=== PATIENT | female | born 1960 | race Caucasian/White ===

== ENCOUNTER 2016-08-20 07:24 | Inpatient (IN) | payer OTHER ==
--- NOTE | ~2016-08-20 | CT71 ---
[facility] A Service [facility] RADIOLOGY TEXT RESULTS PATIENT: TACHO MANUEL LOCATION: [facility] : 56 UNIT #: [id number] AGE: [address]: Devon Luevano MD SEX: F ORDER DR: [id number] [address] [address] [id number] MR#: [id number] #: [id number] NAME: TACHO MANUEL : 1960 SEX: F STUDY DATE/TIME: 08/20/2016 8:54 UNIT: [facility] ROOM: STUDY DESCRIPTION: CT Head Wo Contrast Attending Physician: Devon Luevano M.D. Ordering Physician: Devon Luevano M.D. Primary Care Physician: Nguyễn Morales M.D. MEDICAL IMAGING REPORT This report is preliminary unless electronic signature is present EXAM CT head without contrast. DATE 08/20/2016 HISTORY 55-year-old female who has been unable to move her lower extremities since 0300 today. History of breast cancer diagnosed in 2000. COMPARISON CT head without contrast 05/24/2012. TECHNIQUE This CT exam was performed with one or more of the following radiation dose reduction techniques: automatic exposure control, adjustment of mA and/or kV according to patient size, and iterative reconstruction. FINDINGS No acute intracranial hemorrhage, mass lesion, mass effect, or midline shift is seen. Thorne matter-white matter junction distinction is preserved, without CT evidence of acute or evolving infarct. There is mild left maxillary sinus and bilateral ethmoid sinus mucosal thickening. Mastoid air cells are clear. No acute displaced calvarial fracture is identified. IMPRESSION 1. No acute intracranial findings. 2. Paranasal sinus disease. Dictated by... [facility] A Service [facility] RADIOLOGY TEXT RESULTS PATIENT: TACHO MANUEL LOCATION: [facility] : 56 UNIT #: [id number] AGE: [address]: Devon Luevano MD SEX: F ORDER DR: Alondra Garcia M.D. THIS IS AN ELECTRONICALLY VERIFIED REPORT Alondra Garcia M.D. at 08/20/2016 4:35 PM [facility]/dora TD: 08/20/2016 12:12 JOB #: [id number] MEDICAL IMAGING REPORT Page 1 of 1 COPY
--- NOTE | ~2016-08-20 | DS ---
Unit #: [id number] #: [id number] Patient: TACHO MANUEL [id number] [address] [address] [id number] MR#: [id number] NAME: TACHO MANUEL ROOM: 331 Age: 55 Sex: F Admission Date: 08/20/2016 : 1960 Discharge Date: 08/22/2016 Attending Physician: Ora Jenkins M.D. Primary Care Physician: Nguyễn Morales M.D. DISCHARGE SUMMARY DIAGNOSES ON ADMISSION 1. Bilateral lower extremity weakness. 2. Severe hypokalemia. DISCHARGE DIAGNOSES 1. Hypokalemia, resolved. 2. Bilateral lower extremity weakness, resolved. 3. Chronic obstructive pulmonary disease. 4. Depression. 5. Anxiety disorder. 6. Gastroesophageal reflux disease. 7. History of breast cancer. DIAGNOSTIC DATA LABORATORY: Creatinine 0.8, sodium 142, potassium 3.3 today. It was 1.5 on admission. White blood cell count 6.2, hemoglobin 11.5, platelet count 155. Magnesium level 2.2. Urinalysis did not reveal any white blood cells. Lactic acid level was 0.9. Urine tox screen was negative. IMAGING: CT scan of the head did not reveal an acute intracranial abnormality. HOSPITAL COURSE The patient is a 55-year-old female who presented to [facility] with severe hypokalemia and bilateral lower extremity weakness. Details are as per admission history and physical. The patient was admitted to the hospital and potassium was given. Her potassium is much better and is 3.3 today. The patient is feeling much better and is ambulatory and wants to go home. The patient states that she uses laxatives sometimes for constipation. She is advised to follow up with her primary care physician. Today the patient is comfortable, in no distress and wants to go home. DISCHARGE CONDITION Stable. ACTIVITY As tolerated. DISCHARGE MEDICATIONS 1. ProAir inhaler q.2 h. p.r.n. 2. Lyrica 200 mg p.o. b.i.d. 3. Paxil 20 mg p.o. daily. Unit #: [id number] #: [id number] Patient: TACHO MANUEL 4. Simethicone 125 mg p.o. daily. 5. Bentyl 20 mg p.o. daily p.r.n. 6. Seroquel 200 mg p.o. at nighttime. 7. Ambien 5 mg at nighttime p.r.n. 8. Lycine 500 mg p.o. q.8 h. 9. Colace 600 mg q.48 h. 10. Imitrex as needed. 11. Linzess 290 mcg daily. 12. Zantac 150 mg daily p.r.n. 13. Excedrin Migraine p.r.n. 14. Percocet 1 tablet p.o. q.i.d. p.r.n., which is the patient's home medicine. 15. Prevacid 30 mg p.o. daily. 16. Calcium with vitamin D 500 mg p.o. every other day. 17. Synthroid 25 mcg p.o. daily. 18. Afrin nasal spray p.r.n. 19. Vitamin B12 1000 mcg p.o. daily. 20. Potassium 10 mEq p.o. daily. FOLLOWUP The patient is advised to follow up with primary care physician in four to five days and have a CBC and BMP done for followup on hypokalemia. If the patient's potassium level remains low, she may need renal workup on an outpatient basis through her primary care physician. The plan was discussed in detail with the patient, who showed complete understanding. Please make note, I offered the patient inpatient renal consultation but she wanted to go home and have it done on an outpatient basis if needed. The patient was advised to call primary care physician or go to the emergency room if her condition changes. Dictated by... Lissy Lutz TD: 08/22/2016 10:31 JOB #: [id number] DISCHARGE SUMMARY Page 1 of 1 X Ora Jenkins MD X DISCHARGE SUMMARY
--- NOTE | ~2016-08-20 | HP ---
Unit #: [id number] #: [id number] Patient: TACHO MANUEL [id number] [address] [address] [id number] E MR#: [id number] NAME: TACHO MANUEL ROOM: Age: 55 Sex: F Admission Date: 08/20/2016 : 1960 Attending Physician: Devon Luevano M.D. Primary Care Physician: Nguyễn Morales M.D. HISTORY AND PHYSICAL CHIEF COMPLAINT Lower extremity weakness. HISTORY OF PRESENT ILLNESS The patient is a 55-year-old female with a history of depression and breast cancer, status post mastectomy, back pain, status post steroid injection 2 weeks ago. The patient got a migraine. She presented to the emergency room unable to move the lower extremity. The patient woke up at 3:30 this morning to go to the bathroom and was unable to move the leg, hands and neck. The patient was found to have potassium of 1.5 in the emergency room and MRI was attempted, but the patient could not lie flat and MRI was canceled. The patient was started on protocol for potassium. The patient started feeling better, able to move the hands and the neck and the foot, but still not the legs. The patient is admitted for the above reasons. PAST MEDICAL HISTORY 1. History of chronic obstructive pulmonary disease. 2. Depression/anxiety disorder. 3. Gastroesophageal reflux disease. 4. Breast cancer. 5. Status post T12 compression fracture, status post spinal fusion with instrumentation T10 through L2 levels. PAST SURGICAL HISTORY 1. Right mastectomy. 2. Hysterectomy. 3. Gallbladder surgery. 4. Spine fracture times three. 5. Right knee surgery. SOCIAL HISTORY The patient smokes less than a pack per day. Denies any alcohol or any illicit drug abuse. FAMILY HISTORY Reviewed and none. ALLERGIES No known drug allergies. HOME MEDICATIONS 1. Claritin. Unit #: [id number] #: [id number] Patient: TACHO MANUEL 2. Bentyl. 3. Paxil. 4. Vitamins. 5. Afrin. 6. Lansoprazole. 7. Oxycodone. 8. Advil. 9. Lyrica. 10. Zolpidem. 11. ProAir. 12. Imitrex. 13. Linzess. 14. Seroquel. 15. Levothyroxine. 16. Calcium. 17. Excedrin. 18. Lysine. 19. Stool softener. 20. Black cohosh. PHYSICAL EXAMINATION GENERAL: The patient is a lying on a bed, not in acute distress. VITALS: Temperature 97.1, pulse 66, respiratory rate 12, blood pressure 109/62, saturating 95% on room air. HEENT: Head atraumatic, normocephalic. Pupils equal, round and reactive to light and accommodation. Extraocular movements are intact. NECK: Supple. LUNGS: Clear to auscultation at the bases. HEART: Regular rate and rhythm. ABDOMEN: Soft. Positive bowel sounds. EXTREMITIES: No cyanosis or clubbing. NEUROLOGIC: Alert, awake and oriented. Unable to move the lower legs. Able to move the upper extremities and neck. DIAGNOSTIC STUDIES IMAGING: CT of the head shows no acute intracranial findings. Paranasal sinus disease. LABORATORY: Sodium 139, potassium 1.4, chloride 120, bicarb 14, glucose 108, BUN 20, creatinine 0.9, calcium 8.6, troponin less than 0.05. INR 0.9. Glucose 117, white blood cell count 12, hemoglobin 13.1, hematocrit 39.1, platelets 170. ASSESSMENT 1. Hypokalemia. 2. Lower extremity weakness. 3. Anxiety. PLAN Admit the patient to inpatient. The patient will have potassium replacement per protocol. Check urinalysis and lactic acid. Metabolic acidosis with a bicarb of 12. To rule out infection check urinalysis. The patient will be monitored closely. Will have physical therapy if the patient continues to have inability to move the legs, then we will have an MRI of the spine and pain management consult. The patient is being followed through [facility]. Further recommendations will follow. Unit #: [id number] #: [id number] Patient: TACHO MANUEL Dictated by Lissy Wu TD: 08/20/2016 15:35 JOB #: [id number] HISTORY AND PHYSICAL Page 1 of 1 X JOSE AGUILAR MD HISTORY AND PHYSICAL
--- NOTE | ~2016-08-20 | EKG ---
PATIENT: TACHO MANUEL UNIT #: [id number] Ventricular Rate: 63 BPM Atrial Rate: 63 BPM P-R Interval: 172 ms QRS Duration: 94 ms Q-T Interval: 598 ms QTC Calculation(Bezet): 611 ms P [place]: 77 degrees Calculated R [place]: 66 degrees Calculated T [place]: 60 degrees Diagnosis Line: Normal sinus rhythm Diagnosis Line: Nonspecific ST abnormality Diagnosis Line: Prolonged QT Diagnosis Line: Abnormal ECG Diagnosis Line: When compared with ECG of 26-MAR-2014 11:19, Diagnosis Line: Non-specific change in ST segment in Anterior Diagnosis Line: leads Diagnosis Line: T wave amplitude has decreased in Lateral leads Diagnosis Line: QT has lengthened Diagnosis Line: Confirmed by DAY JOHNS MD ([id number]) on Diagnosis Line: 08/21/2016 1:37:40 PM INTERPRETING MD: JHONY
[~2016-08-20 07:24] MED LIST: AFRIN NASAL SPR15 ML; ALBUTEROL17 GM INH; AMBIEN PO; AMITRIPTYLINE H50 MG PO; APRESOLINE PO; AZITHROMYCIN250 MG PO; B-COMPLEX-VITA1 EACH; BENTYL20 MG PO; BUSPAR PO; CALCIUM 600 +1 EAC3; CALCIUM CIT-VI1 EACH PO; COMBIVENT INH14.7 GM INH; COMPAZINE5 M1 PO; COMPAZINE5 MG PO; COOL PO; CYMBALTA PO; DESYREL50 MG PO; DICYCLOMINE HCL20 MG PO; EXCEDRIN MIGRAI1 TA2 PO; FLEXERIL PO; FLEXERIL10 MG; FLEXERIL10 MG PO; IBUPROFEN800 MG PO; IMITREX PO; KETOPROFEN PO; LAMICTAL PO; LAMOTRIGINE200 MG PO; LIDODERM30 EA TOP; LORTAB 5/500 TA1 TA1 PO; LYRICA PO; LYRICA200 MG PO; MIRAPEX0.125 MG PO; MORPHINE SULFAT15 MG PO; MUSCLE RELAXER; NATURAL VEGETA PO; NEURONTIN300 MG PO; NORCO1 TAB 10/3 PO; NUCYNTA100 MG; ONE DAILY MULTI1 TA3; OXYCODON HCL-1 UDTA1 PO; OXYCODON HCL-1 UDTAB PO; OXYCODONE-APAP1 EACH PO; PAIN PILL; PARAFON FORTE500 MG PO; PERCOCET; PERCOCET 10/3251 TAB PO; PERCOCET 5-3251 TAB PO; PERCOCET 51 UDTAB 5/ PO; PERCOCET10 PO; PHENERGAN PO; PHENERGAN25 M1 PO; PHENERGAN25 MG; PHENERGAN25 MG PO; PRILOSEC PO; PROAIR HFA8.5 GM; PROTONIX PO; REGLAN PO; REGLAN10 MG; S LAXATIVE; SENNOSIDES-DOC1 EACH PO; SEROQUEL PO; STOOL SOFTENER1 EAC1; STOOL SOFTENER1 EAC1 PO; SUMATRIPTAN SU100 MG PO; TEMAZEPAM30 MG PO; THIAMINE HCL100 MG PO; TIZANIDINE HCL2 MG PO; TYLENOL #3 PO; TYLOX1 CAP 5/50 DOB; VOLTAREN75 MG PO; WELLBUTRIN PO; WELLBUTRIN XL PO; ZANAFLEX4 M1 PO; ZEGERID 40 MG C1 CAP; [UNRECOGNIZED DRUG - OTHER] PO; [UNRECOGNIZED DRUG - REMARK]
[2016-08-20 08:22] LABS: BASOPHIL# 0.1 X10e3 (0-0.3); BASOPHIL% 0.8 % (0-2.5); EOSINOPHIL# 0.4 X10e3 (0-0.7); HEMATOCRIT 39.1 % (35.0-45.0); HEMOGLOBIN 13.1 gm/dL (12.0-16.0); LYMPHOCYTE# 1.8 X10e3 (1.0-3.5); LYMPHOCYTE% 14.9 % (17.0-45.0); MEAN CELL VOLUME 97.7 FL (83-96); MEAN CORPUSCULAR HEMOGLOBIN 32.7 PG (28-34); MEAN CORPUSCULAR HGB CONC 33.5 g/dL (30-36); MEAN PLATELET VOLUME 11.4 FL (6.5-11.5); NEUTROPHIL# 8.8 X10e3 (1.5-7.1); NEUTROPHIL% 73.3 % (40-75); PLATELET COUNT 170 X10e3 (140-420); RED CELL DISTRIBUTION WIDTH 15.3 % (11.0-15.5)
[2016-08-20 08:25] LABS: DIFF IND NO
[2016-08-20 08:33] LABS: INR 0.9; PARTIAL THROMBOPLASTIN TIME 26.1 SECONDS (23.5-31.3); PROTHROMBIN TIME (PATIENT) 9.7 SECONDS (9.6-11.5)
[2016-08-20 08:48] LABS: ALBUMIN SERUM 3.7 g/dL (3.5-5.0); BILIRUBIN, DIRECT 0.1 mg/dL (0.0-0.2); BILIRUBIN,INDIRECT 0.4 mg/dL (0.0-0.9); BILIRUBIN,TOTAL 0.5 mg/dL (0.2-2.0); BUN/CREATININE RATIO 18.18; CALCIUM SERUM 8.8 mg/dL (8.4-10.2); CREATININE SERUM 1.1 mg/dL (0.6-1.4); GLOM FILT RATE Estimated 55.7 mL/min (>60); PROTEIN TOTAL SERUM 6.4 g/dL (6.0-8.3)
[2016-08-20 08:50] LABS: POTASSIUM 1.5 mmol/L (3.5-5.1)
[2016-08-20 08:55] LABS: POC - CKMB 5.4 ng/mL (0.0-7.9); POC - TROPONIN <0.05 ng/mL (<=0.05)
[2016-08-20] MEDS ORDERED: LANSOPRAZOLE30 M3 PO (10:01)
[2016-08-20] MEDS ORDERED: OXYCODONE-ACET1 EAC1 PO (10:01)
[2016-08-20] MEDS ORDERED: LYRICA PO (10:02)
[2016-08-20] MEDS ORDERED: IBUPROFEN PO (10:02)
[2016-08-20] MEDS ORDERED: ZOLPIDEM TARTRA10 M1 PO (10:03)
[2016-08-20] MEDS ORDERED: PROAIR RESPICL90 MCG INH (10:06)
[2016-08-20] MEDS ORDERED: IMITREX PO (10:06)
[2016-08-20] MEDS ORDERED: LINZESS290 MCG PO (10:07)
[2016-08-20] MEDS ORDERED: SEROQUEL PO (10:09)
[2016-08-20] MEDS ORDERED: LEVO-T25 MCG PO (10:10)
[2016-08-20] MEDS ORDERED: RANITIDINE HCL150 M1 PO (10:10)
[2016-08-20] MEDS ORDERED: BENTYL20 MG PO (10:11)
[2016-08-20] MEDS ORDERED: PAXIL PO (10:14)
[2016-08-20] MEDS ORDERED: B-121000 MC1 PO (10:14)
[2016-08-20] MEDS ORDERED: AFRIN15 M1 (10:15)
[2016-08-20] MEDS ORDERED: EXCEDRIN MIGRA1 EACH PO (10:16)
[2016-08-20] MEDS ORDERED: CALCIUM + D3 E1 EACH PO (10:16)
[2016-08-20] MEDS ORDERED: L-LYSINE500 M2 PO (10:17)
[2016-08-20] MEDS ORDERED: STOOL SOFTENER50 MG PO (10:17)
[2016-08-20] MEDS ORDERED: ALKA-SELTZER125 MG PO (10:18)
[2016-08-20] MEDS ORDERED: BLACK COHOSH40 M1 PO (10:18)
[2016-08-20] MEDS ORDERED: PATIENT'S PHARMACY (10:22)
[2016-08-20 10:54] LABS: BUN/CREATININE RATIO 22.22; CALCIUM SERUM 8.6 mg/dL (8.4-10.2); CREATININE SERUM 0.9 mg/dL (0.6-1.4)
[2016-08-20 10:56] LABS: POTASSIUM 1.4 mmol/L (3.5-5.1)
[2016-08-20 16:32] LABS: URINE SOURCE CLEAN CATCH
[2016-08-20 17:01] LABS: AMPHETAMINE NEG (NEG); BARBITURATES NEG (NEG); BENZODIAZEPINES NEG (NEG); COCAINE NEG (NEG); MARIJUANA NEG (NEG); OPIATES NEG (NEG); TRICYCLIC ANTIDEPRESSANTS NEG (NEG); U METHADONE NEG (NEG)
[2016-08-20 17:28] LABS: URINE APPEARANCE CLEAR; URINE BILIRUBIN NEG (NEG); URINE BLOOD 1+ (NEG); URINE COLOR YELLOW; URINE GLUCOSE NEG (NEG); URINE KETONE NEG (NEG); URINE LEUKOCYTE ESTERASE NEG (NEG); URINE NITRATE NEG (NEG); URINE PH 6.5 (5-8); URINE PROTEIN 1+ (NEG); URINE UROBILINOGEN 0.2 MG/DL (NEG)
[2016-08-20 17:31] LABS: CULTURE INDICATED? NO; U HYALINE CASTS AUWI 0-2 /[LPF]; URBCS1 AUWI 0-2 /[HPF] (0-2); URINE BACTERIA AUWI NEG (NEGATIVE); URINE SQUAMOUS EPITHELIAL CELL OCC /[HPF]; UWBCS1 AUWI 0-2 (0-5)
[2016-08-21 10:25] LABS: HEMATOCRIT 36.7 % (35.0-45.0); HEMOGLOBIN 12.1 gm/dL (12.0-16.0); MEAN CELL VOLUME 98.6 FL (83-96); MEAN CORPUSCULAR HEMOGLOBIN 32.5 PG (28-34); MEAN CORPUSCULAR HGB CONC 32.9 g/dL (30-36); MEAN PLATELET VOLUME 11.8 FL (6.5-11.5); RED BLOOD COUNT 3.72 X10e (3.90-5.30); RED CELL DISTRIBUTION WIDTH 15.2 % (11.0-15.5); WHITE BLOOD COUNT 6.6 X10e3 (4.0-10.5)
[2016-08-21 10:36] LABS: BUN/CREATININE RATIO 15.45; CALCIUM SERUM 8.4 mg/dL (8.4-10.2); CREATININE SERUM 1.1 mg/dL (0.6-1.4); GLOM FILT RATE Estimated 55.7 mL/min (>60)
[2016-08-21 10:37] LABS: POTASSIUM 2.7 mmol/L (3.5-5.1)
[2016-08-22 07:23] LABS: HEMOGLOBIN 11.5 gm/dL (12.0-16.0); MEAN CELL VOLUME 98.5 FL (83-96); MEAN CORPUSCULAR HEMOGLOBIN 32.4 PG (28-34); MEAN CORPUSCULAR HGB CONC 32.9 g/dL (30-36); MEAN PLATELET VOLUME 11.9 FL (6.5-11.5); RED BLOOD COUNT 3.55 X10e (3.90-5.30); RED CELL DISTRIBUTION WIDTH 15.3 % (11.0-15.5); WHITE BLOOD COUNT 6.2 X10e3 (4.0-10.5)
[2016-08-22 07:49] LABS: CALCIUM SERUM 8.3 mg/dL (8.4-10.2); CREATININE SERUM 0.8 mg/dL (0.6-1.4); GLOM FILT RATE Estimated 81.9 mL/min (>60); POTASSIUM 3.3 mmol/L (3.5-5.1)
[2016-08-22] MEDS ORDERED: POTASSIUM CHLO10 ME2 PO (10:47)
== END 2016-08-22 12:35 | disposition home or self-care (01) | DRG 641 ==
LOC: CED 07:24 → CEDOF 11:29 → CED 11:38 → CEDOF 18:45 → C3A PCU 18:45
PROVIDERS: Emergency Medicine; Internal Medicine; Internal Medicine Nephrology
DX: E87.6 Hypokalemia (principal); F32.9 Major depressive disorder, single episode, unspecified; R53.1 Weakness; J44.9 Chronic obstructive pulmonary disease, unspecified; F41.9 Anxiety disorder, unspecified; K21.9 Gastro-esophageal reflux disease without esophagitis; F17.210 Nicotine dependence, cigarettes, uncomplicated; Z90.710 Acquired absence of both cervix and uterus; Z90.49 Acquired absence of other specified parts of digestive tract; Z85.3 Personal history of malignant neoplasm of breast; Z90.11 Acquired absence of right breast and nipple
CPT/HCPCS: 70450; 80048; 80076; 80307; 81003; 82553; 82947; 83605; 83735; 84132; 84484; 85025; 85027; 85610; 85730; 93005; 94760; 97116; 97161; 99291; G8978-GP; G8979-GP; G8980-GP